=== PATIENT | female | born 1975 | race Caucasian/White ===

== ENCOUNTER 2016-07-11 09:18 | Emergency (ER) | payer MEDICAID ==
[~2016-07-11 09:18] MED LIST: ALBUTEROL2.5 MG/3 M INH; KEFLEX500 MG; MOTRIN600 MG; OXYCODONE/APAP; PRENATAL1 TAB; PULMICORT180 MCG/AE IH; SENOKOT8.6 MG; TYLENOL W/CODEI1 TAB; ZANTAC150 MG PO; [UNRECOGNIZED DRUG - OTHER]
[2016-07-11] MEDS ORDERED: LAMICTAL150 M1 PO (09:30)
[2016-07-11] MEDS ORDERED: LAMICTAL100 M2 PO (09:31)
[2016-07-11] MEDS ORDERED: GABAPENTIN100 M1 PO (09:31)
[2016-07-11] MEDS ORDERED: NEURONTIN100 M1 PO (09:31)
[2016-07-11] MEDS ORDERED: GABAPENTIN300 M1 PO (09:32)
[2016-07-11] MEDS ORDERED: METHYLPHENIDATE20 M4 PO (09:32)
[2016-07-11] MEDS ORDERED: RITALIN10 M1 PO (09:33)
[2016-07-11] MEDS ORDERED: CLARITIN10 M6 PO (09:33)
[2016-07-11] MEDS ORDERED: CYCLOBENZAPRINE10 M1 PO (11:29)
== END 2016-07-11 12:05 ==
LOC: EDMED 09:18
DX: R51 Headache (principal); G89.29 Other chronic pain; M79.7 Fibromyalgia; R11.0 Nausea; J45.909 Unspecified asthma, uncomplicated; F41.9 Anxiety disorder, unspecified; F32.9 Major depressive disorder, single episode, unspecified; Z90.49 Acquired absence of other specified parts of digestive tract; Z98.890 Other specified postprocedural states; Z79.51 Long term (current) use of inhaled steroids; Z79.899 Other long term (current) drug therapy
CPT/HCPCS: J1885; J2060; J2405; J7030